=== PATIENT | female | born 1935 ===

== ENCOUNTER 2019-01-06 11:06 | Day surgery (SDC) | payer MEDICARE, OTHER, SELFPAY ==
[2019-01-06] VITALS (9 sets, daily range): BP systolic 117–172; BP diastolic 55–86
[~2019-01-06] VITALS: Ht 162.6 cm; Wt 77.1 kg
--- NOTE | 2019-01-06 07:18 | Pre-Procedure Note/Attestation ---
Pre-Procedure Note/Attestation Complete Prior to Procedure Planned Procedure: right - Removal of cataract and placement of intraocular lens, right eye Procedure Narrative: Removal of cataract and placement of intraocular lens, right eye Indications for Procedure Pre-Operative Diagnosis: Cataract, nuclear, right eye Attestation I attest that I discussed the nature of the procedure; its benefits; risks and complications; and alternatives (and the risks and benefits of such alternatives ), prior to the procedure, with the patient (or the patient's legal congressional representative). I attest that, if there was a reasonable possibility of needing a blood transfusion, the patient (or the patient's legal congressional representative) was given the [place] [facility] [employer] [facility] standardized written summary, pursuant to the Iftikhar Angel Blood Safety Act ([place] Health and Safety Code # 1645, as amended). I attest that I re-evaluated the patient just prior to the surgery and that there has been no change in the patient's H&P, except as documented below: Larry Serna MD Jan 06, 2019 07:18
[~2019-01-06 11:06] MED LIST: Acetylcholine Injection (OR) ONE; BSS 15ml BTL ONE; BSS 500ml btl ONE; Bupivacaine 0.75% 30ml vial INJ ONE; Dexamethasone 4mg/ml vial ONE; EPINEPHrine 1mg/1ml Amp ONE; Fluorescein Strips ONE; Lidocaine 1% MPF 10mg/ml 5ml ONE; Lidocaine 4% Amp ONE; Maxitrol Opth Oint 3.5gm ONE; Povidone-Iodine 5% opth solution ONE; Sodium Hyaluronate 10 mg/ml 0.85ml ONE; Tetracaine 0.5% Opth 4ml Soln ONE; Timolol 0.5% Op Soln 2.5ml ONE
[2019-01-06] MEDS ORDERED: Tobradex Opth Susp 2.5ml ONE (11:39)
[2019-01-06] MEDS ORDERED: Cyclopentolate 1% Opth Sol 2ml ONE (11:39)
[2019-01-06] MEDS ORDERED: Ciprofloxacin Opth Soln 2.5ml ONE (11:39)
[2019-01-06] MEDS ORDERED: Phenylephrine 10% Opth Soln 5ml ONE (11:39)
[2019-01-06] MEDS ORDERED: Gentamicin 0.3% Opth Soln 5ml ONE (11:40)
[2019-01-06] MEDS ORDERED: Tropicamide 1% Opth 15ml Soln ONE (11:40)
[2019-01-06] MEDS: Tropicamide 1% Opth 15ml Soln RIGHT EYE SCH ×3 (11:45→12:27)
[2019-01-06] MEDS: Cyclopentolate 1% Opth Sol 2ml RIGHT EYE SCH ×3 (11:46→12:27)
[2019-01-06] MEDS: Tobradex Opth Susp 2.5ml RIGHT EYE SCH ×3 (11:47→12:29)
[2019-01-06] MEDS: Phenylephrine 10% Opth Soln 5ml RIGHT EYE SCH ×3 (11:47→12:27)
[2019-01-06] MEDS: Ciprofloxacin Opth Soln 2.5ml RIGHT EYE SCH ×3 (11:47→12:27)
[2019-01-06] MEDS: Gentamicin 0.3% Opth Soln 5ml RIGHT EYE SCH ×3 (11:47→12:27)
--- NOTE | 2019-01-06 12:20 | Anethesia Preoperative Eval ---
Anesthesia Pre-op PMH/ROS General Date of Evaluation: Jan 06, 2019 Time of Evaluation: 12:20 Anesthesiologist: Lynnette Kraus CRNA ASA Score: ASA 3 Mallampati Score Class I : Soft palate, uvula, fauces, pillars visible Class II: Soft palate, uvula, fauces visible Class III: Soft palate, base of uvula visible Class IV: Only hard plate visible Mallampati Classification: Class III Surgeon: Daphne Diagnosis: RIGHT eye cataract Surgical Procedure: RIGHT eye cataract extraction with IOL Anesthesia History: none Family History: no anesthesia problems Allergies: Coded Allergies: No Known Allergies (Unverified , 01/06/19) Medications: see eMAR Patient NPO?: Yes NPO Date: Jan 06, 2019 NPO Time: 00:00 Past Medical History Cardiovascular: Reports: HTN, other - Hypercholesterolemia; Denies: CAD, PA, valve dz, arrhythmia Pulmonary: Denies: asthma, COPD, ZACH, other Gastrointestinal/Genitourinary: Reports: GERD, other - kidney stones; Denies: CRI, ESRD Neurologic/Psychiatric: Denies: dementia, CVA, depression/anxiety, TIA, other Endocrine: Reports: DM - type 2; Denies: hypothyroidism, steroids, other HEENT: Reports: cataract (L), cataract (R); Denies: glaucoma, LITTLE TRAVERSE (L), LITTLE TRAVERSE (R), other Hematology/Immune: Denies: anemia, DVT, bleeding disorder, other Musculoskeletal/Integumentary: Reports: OA - s/p (R) TKR; Denies: RA, DJD, DDD, edema, other Other: obesity PMH Narrative: as noted above PSxH Narrative: RIGHT TKR, hysterectomy, cholecystectomy Anesthesia Pre-op Phys. Exam Physician Exam Last Vital Signs Date Time Temp Pulse Resp B/P (MAP) Pulse Ox O2 Delivery O2 Flow Rate FiO2 01/06/19 12:06 96.6 56 18 172/75 96 Room Air Constitutional: NAD Neurologic: other - alert and oriented Cardiovascular: RRR Respiratory: CTA Gastrointestinal: S/NT/ND Airway Exam Mallampati Score: Class III MO: full Neck: FROM TMD: > 3 FB ROM: full Teeth: intact Dentures: no upper, no lower Anesthesia Pre-op A/P Labs reviewed, see chart Accucheck 114 Studies Pre-op Studies: EKG - SR, 1st deg AV block Risk Assessment & Plan Status Change Before Surgery: No Pre-Antibiotics Given Within 1 Hr of Incision: No Lynnette Kraus CRNA Jan 06, 2019 12:20
[2019-01-06] MEDS ORDERED: JANUVIA25 MG ORAL (12:54)
[2019-01-06] MEDS ORDERED: CELEBREX200 MG ORAL (12:55)
[2019-01-06] MEDS ORDERED: BENICAR40 MG ORAL (12:56)
[2019-01-06] MEDS ORDERED: TRIBENZOR 40-11 EACH ORAL (12:57)
[2019-01-06] MEDS ORDERED: CREON DR 24,001 EACH PO (12:59)
[2019-01-06] MEDS ORDERED: VOLTAREN100 G1 TP (13:00)
[2019-01-06] MEDS ORDERED: LYRICA75 M1 ORAL (13:01)
[2019-01-06] MEDS ORDERED: LIPITOR20 MG ORAL (13:02)
[2019-01-06] MEDS ORDERED: vit D3 PO (13:03)
[2019-01-06] MEDS ORDERED: PROLIA60 MG/1 ML SUBQ (13:04)
[2019-01-06] MEDS ORDERED: ASPIR 8181 MG ORAL (13:05)
[2019-01-06] MEDS ORDERED: MYRBETRIQ25 MG PO (13:06)
[2019-01-06] MEDS ORDERED: CAPTOPRIL25 M1 PO (13:08)
[2019-01-06] MEDS ORDERED: Pred Forte 1% Opth Susp 1ml ONE (13:30)
[2019-01-06] MEDS ORDERED: NS Irrig 1000ml ONE (13:30)
[2019-01-06] MEDS ORDERED: Sterile Water Irrig 1000ml IRRIG ONE (13:30)
[2019-01-06] MEDS ORDERED: LR 1000ml ONE (13:30)
[2019-01-06] MEDS ORDERED: fentaNYL 100 mcg/2 mL IV ONE (13:30)
[2019-01-06] MEDS ORDERED: Akten 3.5% 1ml Btl ONE (13:40)
[2019-01-06] MEDS ORDERED: Propofol 200mg/20ml IV ONE (13:41)
[2019-01-06] MEDS ORDERED: Tetracaine 0.5% Opth 4ml Soln ONE (13:47)
[2019-01-06] MEDS ORDERED: Sodium Hyaluronate 10 mg/ml 0.85ml ONE (14:18)
--- NOTE | 2019-01-06 14:58 | Discharge Instructions ---
Discharge Instructions Discharge Instructions Follow Up Orders Continue preop eye drops Wear shield at all times except to place eye drops Followup tomorrow in Dr Serna's office Return to Work/School on: Jan 06, 2019 For Congestive Heart Failure Reminder Report to your physician any weight gain of 5 pounds or more in one week. Larry Serna MD Jan 06, 2019 14:58
--- NOTE | 2019-01-06 15:01 | Immediate Post-Op Evaluation ---
Immediate Post-Op Evalulation Immediate Post-Op Evalulation Procedure: Right eye cataract extraction with IOL Date of Evaluation: Jan 06, 2019 Time of Evaluation: 15:02 IV Fluids: 150 Blood Products: 0 Estimated Blood Loss: 0 Urinary Output: 0 Blood Pressure Systolic: 120 Blood Pressure Diastolic: 56 Pulse Rate: 56 Respiratory Rate: 16 O2 Sat by Pulse Oximetry: 98 Temperature (Fahrenheit): 97.9 Pain Score (1-10): 0 Nausea: No Vomiting: No Complications 0 Patient Status: awake, reacts, patent, none Hydration Status: adequate Drug: N/A Haydee Londono MD Jan 06, 2019 15:01
--- NOTE | 2019-01-06 15:01 | Discharge Instructions ---
Discharge Instructions Discharge Instructions Follow Up Orders Continue preop eye drops Wear shield at all times except to place eye drops Followup tomorrow in Dr Serna's office For Congestive Heart Failure Reminder Report to your physician any weight gain of 5 pounds or more in one week. Larry Serna MD Jan 06, 2019 15:01
--- NOTE | 2019-01-06 15:02 | 48 Hour Post Anesthesia Eval ---
Post Anesthesia Evaluation Procedure: Right eye cataract extraction with IOL Date of Evaluation: Jan 06, 2019 Airway: patent Nausea: No Vomiting: No Hydration Status: adequate Cardiopulmonary Status: at baseline Mental Status/LOC: patient returned to baseline Post-Anesthesia Complications: 0 Follow-up care needed: ready to discharge Haydee Londono MD Jan 06, 2019 15:02
--- NOTE | 2019-01-06 15:04 | Brief Operative Note ---
Immediate Post Operative Note Operative Note Pre-op Diagnosis: Cataract, nuclear, right eye Procedure: Phaco PC IOL, OD Use of Malyugan ring (7.0) Post-op Diagnosis: Combined cataract, OD Miotic pupil OD Surgeon: Jose Serna MD Additional Surgeons: None Anesthesiologist: Lynnette Kraus CRNA Anesthesia: local, MAC Specimen: none Complications: none Fluids: see chart Implant(s) used?: Yes - tecnis toric [id number] 26.0 Larry Serna MD Jan 06, 2019 15:04
--- NOTE | 2019-01-07 00:30 | Operative Note - Dictated ---
DATE OF OPERATION: 01/06/2019 SURGEON: Larry Serna M.D. WILDLIFE [employer]OTECTOR SURGEON: None. ANESTHESIOLOGIST: Lynnette Kraus CRNA. ANESTHESIA: Local/standby/monitored anesthesia care. 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 POSTOPERATIVE DIAGNOSIS: 1. Combined cataract, right eye as above. 2. Miosis. PROCEDURES: 1. Phacoemulsification of cataract, right eye. 2. Placement of posterior chamber intraocular lens, right eye (model Tecnis [id number], diopter 26.0, 3.00 cylinder). 3. Use of Malyugin ring (7.0 mm). SPECIMENS: None. COMPLICATIONS: None. INDICATIONS FOR SURGERY: The patient has had the painless progressive decrease in the visual acuity in the right eye secondary to cataract. The patient understands the risks of surgery including infection, bleeding, need for further surgery, loss of vision, no improvement in vision, loss of the eye, loss of life, glaucoma, retinal detachment, and understands these risks and elects to proceed with surgery. FINDINGS: The patient had a +3 to 4 very dense nuclear sclerotic cataract as well as a +3 cortical cataract. In addition, the pupil only dilated to approximately 4.5 mm and there was a shallow chamber. The capsule remained intact during the entire procedure. OPERATIVE NOTE: After informed consent was obtained, the patient was brought into the operating room and placed in the supine position. Cardiac and respiratory monitors were attached. A time-out was performed and all criteria were met and everyone in the room agreed. The right eye was draped and prepped in sterile manner for ocular surgery. A lid speculum was placed in the eye. A 1% lidocaine preservative-free was injected at the approximate 09:30 limbus. A conjunctiva peritomy from approximately 9 o'clock to 10 o'clock was made and dissected posteriorly. Hemostasis was maintained with bipolar cautery. A 2.6 mm limbal incision was made centered at approximately 09:30 and dissected anteriorly. A paracentesis was made at approximately 12 o'clock and 1% lidocaine preservative-free was injected into the anterior chamber followed by Healon. The pupil was miotic. So, at this point, I elected to place the Malyugin ring. The anterior chamber was then entered using a 2.6 mm keratome. A Malyugin ring was injected into the anterior chamber and put into the iris at 4 points. An anterior capsulorrhexis was then performed. Hydrodissection and hydrodelineation of the lens was then performed. Prior to starting the procedure and before draping and prepping the patient, tetracaine drops were applied to the eye and brink at the 3 o'clock, 9 o'clock, and 12 o'clock limbus were made. After informed consent was obtained, the patient was brought into the operating room and placed in the supine position. Cardiac and respiratory monitors were attached. The tetracaine drops were applied to the right eye and the patient sat up in a chair and taken straight ahead brink to the limbus at the 9 o'clock, 3 o'clock, and 12 o'clock limbus were made. The patient then laid down and the right eye was then draped and prepped in sterile manner for ocular surgery. A lid speculum was placed in the eye. A 1% lidocaine preservative-free was injected at the approximate 9:30 limbus. After draping and prepping the right eye, a lid speculum was placed in the eye. Optical markers were used to matt the 84 degree meridian preoperatively for a toric IOL. A 1% lidocaine preservative-free was then injected at the conjunctival limbus at approximately 9:30. A conjunctiva peritomy from approximately 9 o'clock to 10 o'clock was made and dissected posteriorly. Hemostasis was maintained with bipolar cautery. A 2.6 mm limbal incision was made centered at approximately 9:30 and dissected anteriorly. A paracentesis was made at approximately 12 o'clock and 1% lidocaine preservative-free was then injected into the anterior chamber followed by Clare. The anterior chamber was then entered using a 2.6 mm keratome through the limbus. A Malyugin ring was injected into the anterior chamber and hooked onto the pupillary margin at 4 points. The pupil was only approximately 4 to 4.5 mm in diameter. An anterior capsulorrhexis was then performed. Hydrodissection and hydrodelineation of the lens was then performed. The lens was then phacoemulsified using a divide and conquer four-quadrant technique. Residual cortical material was then aspirated. The posterior subcapsular cataract was present. This is very sticky to the posterior capsule and rather than trying to remove it, which I did initially was very difficult, and rather than this to breaking the capsule, residual posterior subcapsular cataract was left in place. Healon was injected into the anterior chamber and even into the capsular bag to try and dissect away from the posterior subcapsular cataract and some of it was able to be dissected away and I was able to remove some of that. The lens was taken from its package, placed into the cartridge, and the tip of the cartridge was placed through the limbal incision. The lens was injected into the capsular bag. The Malyugin ring was then removed and Healon was aspirated from the anterior chamber and capsular bag. The lens was rotated such that it was in the 84 degree meridian according to the overlying brink on the cornea. One 10-0 nylon interrupted suture was then placed through the limbal incision and the knot was rotated and buried. Care was taken during the entire procedure not to touch the endothelium. The wounds were checked and tied. The conjunctiva was then closed with forceps cautery. The lid speculum and drapes were removed from the eye and drops of Pred Forte and ciprofloxacin were applied to the eye followed by Timoptic 0.5% and then Maxitrol ointment. A shield was then applied to the eye and the patient tolerated the procedure well and left the operating room awake, alert, and in stable condition. Larry Serna M.D. DR: LUIS JOB#: [id number] CC:
== END 2019-01-06 16:30 | disposition home or self-care (01) ==
LOC: SUR 11:06
DX: H25.11 Age-related nuclear cataract, right eye (principal); H25.011 Cortical age-related cataract, right eye; E78.00 Pure hypercholesterolemia, unspecified; I10 Essential (primary) hypertension; K21.9 Gastro-esophageal reflux disease without esophagitis; E11.9 Type 2 diabetes mellitus without complications; Z87.442 Personal history of urinary calculi; Z90.710 Acquired absence of both cervix and uterus; Z90.49 Acquired absence of other specified parts of digestive tract; Z96.651 Presence of right artificial knee joint; M19.90 Unspecified osteoarthritis, unspecified site; I44.0 Atrioventricular block, first degree
CPT/HCPCS: 66982; 82962; J0171; J1100; J2704; J3010; 94003; 94150